=== PATIENT | male | born 1980 | race Caucasian/White ===

== ENCOUNTER → 2021-04-18 10:06 | Outpatient (CLI) | payer OTHER, MEDICAID, SELFPAY ==
[2021-04-18 10:59] LABS: Add Manual Diff / Slide Review NO; Basophils Absolute Auto 0 /uL (0-100); Basophils Percent Auto 0.9 % (0-2); Eosinophils Absolute Auto 100 /uL (0-450); Eosinophils Percent Auto 1.8 % (2-4); Hematocrit 46.8 % (41-53); Hemoglobin 15.8 g/dL (13.5-17.5); Lymphocytes Absolute Auto 1300 /uL (1100-4500); Lymphocytes Percent Auto 39.5 % (25-40); Mean Corpuscular HGB Conc 33.8 % (30-36); Mean Corpuscular Hemoglobin 31.2 PG (26-34); Mean Corpuscular Volume 92.2 fL (80-100); Monocytes Absolute Auto 300 /uL (0-900); Monocytes Percent Auto 8.9 % (3-14); Neutrophils Absolute Auto 1700 /uL (1500-7000); Neutrophils Percent Auto 48.9 % (50-75); Platelet Count 140 X10^3/uL (150-400); Red Blood Cell Count 5.07 X10^6/uL (4.5-5.9); Red Cell Distribution Width 13.1 % (11.6-14.8); White Blood Cell Count 3.4 X10^3/uL (4.5-11.0)
[2021-04-18 11:12] LABS: Alanine Aminotransferase 15 IU/L (<50); Albumin 4.6 g/dL (3.5-5.0); Albumin Globulin Ratio 1.8 (1.0-2.8); Alkaline Phosphatase 43 U/L (38-126); Aspartate Aminotransferase 23 IU/L (17-59); BUN Creatinine Ratio 14.1 (6-22); Bilirubin Total 0.9 mg/dL (0.2-1.3); Blood Urea Nitrogen 14 mg/dL (9-20); Calcium 9.7 mg/dL (8.4-10.2); Carbon Dioxide 31 mmol/L (22-32); Chloride 103 mmol/L (98-107); Cholesterol 153 mg/dL (140-199); Estimated Glomerular Filt Rate > 60.0 mL/min (>60); Globulin 2.6 g/dL (1.7-4.1); Glucose 98 mg/dL (70-100); HDL Cholesterol 48 mg/dL (40-60); HEMOLYSIS < 15 (0-50); LDL Cholesterol Calculated 93 mg/dL (<100); Potassium 4.9 mmol/L (3.4-5.1); Sodium 140 mmol/L (137-145); Total Protein 7.2 g/dL (6.3-8.2); Triglycerides 62 mg/dL (35-150)
== END ==
PROVIDERS: PCP Family Medicine; Referring Provider Family Medicine; Visit Provider Family Medicine
DX: Z00.00 Encounter for general adult medical examination without abnormal findings (principal)
CPT/HCPCS: 36415; 80053; 80061; 85025

== ENCOUNTER → 2021-06-20 13:59 | Outpatient (CLI) | payer OTHER, MEDICAID, SELFPAY ==
--- NOTE | 2021-06-20 14:00 | DI.RAD.S_ITS ---
PROCEDURE: XR FOOT LT 2V INDICATIONS: injury, persistent pain TECHNIQUE: 2 views of the foot were acquired. COMPARISON: None. FINDINGS: Bones: No fractures or dislocations. No suspicious bony lesions. Soft tissues: No tibiotalar joint effusion. Achilles tendon appears normal. IMPRESSION: No acute fracture. No osseous lesion. If symptoms and/or clinical suspicion for pathology persist, further assessment with repeat, or advanced imaging (e.g., CT, MRI, or bone scan) may be helpful for further assessment. Dictated by: Virgen Morales M.D. on 06/20/2021 at 16:25 Approved by: Virgen Morales M.D. on 06/20/2021 at 16:26
== END ==
PROVIDERS: PCP Family Medicine; Referring Provider Family Medicine; Visit Provider Family Medicine
DX: M79.672 Pain in left foot (principal)
CPT/HCPCS: 73620

== ENCOUNTER → 2021-08-16 09:07 | Outpatient (CLI) | payer OTHER, MEDICAID, SELFPAY ==
[2021-08-16 11:33] LABS: COVID19 -Nasal RAPID Negative (Negative)
== END ==
PROVIDERS: PCP Family Medicine; Visit Provider Surgery
DX: Z01.812 Encounter for preprocedural laboratory examination (principal); Z20.822 Contact with and (suspected) exposure to COVID-19
CPT/HCPCS: 87635

== ENCOUNTER → 2021-08-16 09:11 | Outpatient (CLI) | payer OTHER, MEDICAID, SELFPAY ==
[2021-08-16 09:42] LABS: Add Manual Diff / Slide Review NO; Basophils Absolute Auto 0 /uL (0-100); Basophils Percent Auto 0.8 % (0-2); Eosinophils Absolute Auto 100 /uL (0-450); Eosinophils Percent Auto 1.2 % (2-4); Hematocrit 44.6 % (41-53); Hemoglobin 15.4 g/dL (13.5-17.5); Lymphocytes Absolute Auto 1600 /uL (1100-4500); Lymphocytes Percent Auto 34.8 % (25-40); Mean Corpuscular HGB Conc 34.6 % (30-36); Mean Corpuscular Hemoglobin 31.1 PG (26-34); Mean Corpuscular Volume 89.8 fL (80-100); Monocytes Absolute Auto 400 /uL (0-900); Monocytes Percent Auto 8.4 % (3-14); Neutrophils Absolute Auto 2500 /uL (1500-7000); Neutrophils Percent Auto 54.8 % (50-75); Platelet Count 136 X10^3/uL (150-400); Red Blood Cell Count 4.97 X10^6/uL (4.5-5.9); Red Cell Distribution Width 12.8 % (11.6-14.8); White Blood Cell Count 4.6 X10^3/uL (4.5-11.0)
== END ==
PROVIDERS: PCP Family Medicine; Referring Provider Family Medicine; Visit Provider Family Medicine
DX: Z01.812 Encounter for preprocedural laboratory examination (principal); D69.6 Thrombocytopenia, unspecified; D72.819 Decreased white blood cell count, unspecified; Z20.822 Contact with and (suspected) exposure to COVID-19
CPT/HCPCS: 36415; 85025; 87635; C9803

== ENCOUNTER 2021-08-17 12:57 | Day surgery (SDC) | payer OTHER, MEDICAID, SELFPAY ==
[2021-08-17] MEDS: LACTATED RINGERS 1,000 ML 84 ML IV (13:34)
[2021-08-17 13:44] VITALS: BP 128/80; PULSE 62; RESP 18; TEMP 36.6; O2SAT 97; BMI 24.4
--- NOTE | 2021-08-17 14:47 | PM.HP.1 ---
History of Present Illness History of Present Illness Date Patient Seen: 08/17/21 Time Patient Seen: 14:48 Chief complaint: DX COLONOSCOPY Narrative: aHm is a 40-year-old man who is here for colonoscopy due to a family history. His mother was diagnosed with colon cancer in her 50s. He has never had a colonoscopy before. Patient History Medical History (Updated 03/21/21 @ 22:37 by Jennifer Tristan) Clavicle fracture (~2001) Family hx of colon cancer Family & Social History Family History (Updated 03/21/21 @ 22:37 by Jennifer Tristan) Mother Cancer Social History: household members spouse Tobacco & Substance use: Smoking Status Never smoker alcohol intake current alcohol intake frequency a few times a week Substance Use Type does not use Meds Home Medications and Allergies Home Medications Medication Instructions Recorded Confirmed Type No Known Home Medications 08/17/21 08/17/21 History Allergies Allergy/AdvReac Type Severity Reaction Status Date / Time No Known Drug Allergies Allergy Verified 08/17/21 13:31 Exam Vital Signs (past 8 hours): - 08/17/21 13:44 Temperature 97.8 F Pulse Rate 62 Respiratory Rate 18 Blood Pressure 128/80 Pulse Oximetry 97 Oxygen Delivery Method Room Air Const General: healthy appearing Resp Effort & Inspection: normal respiratory effort GI Palpation: soft Assessment & Plan Assessment and plan (1) Family hx of colon cancer: Status: Acute Plan Plan for colonoscopy. Reviewed risks and benefits and he would like to proceed. COVID-19 COVID-19 status: Negative Result date/Date tested (Pos, Neg/Pending): 08/16/21 Time Spent With Patient Critical Care time: I spent a total of [] minutes of critical care time on this patient's care today; this time is exclusive of procedural time.
[2021-08-17] MEDS: MIDAZOLAM 5 MG/5 ML VIAL IV (15:20)
[2021-08-17] MEDS: fentaNYL 250 MCG/5 ML INJ IV (15:20)
--- NOTE | 2021-08-17 15:22 | PM.OP.COLON ---
Operative Date/Time/Diagnoses Date of procedure: 08/17/21 Time of procedure: 15:22 Pre-op diagnosis: Family history of colon cancer Post-op diagnosis: same Procedure & Clinicians Study performed: Colonoscopy Same procedure as scheduled: Yes Surgeon: Gomez Juarez Procedure Notes Procedure in detail: Procedure: The patient was brought to the endoscopy suite, placed in left lateral decubitus position. The patient was connected to monitoring devices. A time-out was performed. Sedation was administered. Once the patient was adequately sedated, a digital rectal exam was performed and was normal. The scope was then inserted and advanced to the cecum where the appendiceal orifice was identified and photographed. The scope was then slowly withdrawn over greater than 6 minutes. Mucosa was thoroughly inspected. No abnormalities were noted. The scope was retroflexed in the rectum. No abnormalities were noted. The scope was straightened and removed. The patient was awakened and brought to recovery. Versed: 8 mg Fentanyl: 250 mcg EBL: 0 Findings: Normal colon Scope withdrawal time: 9 Sedation minutes: 22 Post-procedure Recommendations: Colonoscopy in 5 years Plan for aftercare: Colonoscopy in 5 years due to family history of colon cancer
[2021-08-17 15:25] VITALS: BP 128/81; PULSE 65; RESP 16; TEMP 36.8
[2021-08-17 15:30] VITALS: BP 119/81; PULSE 57; RESP 16; O2SAT 95
[2021-08-17 15:35] VITALS: BP 119/81; PULSE 82; RESP 16; O2SAT 95
[2021-08-17 15:50] VITALS: BP 112/70; PULSE 76; RESP 16; TEMP 36.8; O2SAT 98
[2021-08-17 15:55] VITALS: BP 122/74; PULSE 68; RESP 16; TEMP 36.8; O2SAT 98
== END 2021-08-17 16:15 | disposition home or self-care (01) ==
PROVIDERS: PCP Family Medicine; Referring Provider Surgery; Visit Provider Surgery
PROC: 0DJD8ZZ Inspection of Lower Intestinal Tract, Via Natural or Artificial Opening Endoscopic (ICD-10-PCS; CPT 45378; principal; 2021-08-17 14:30)
DX: Z12.11 Encounter for screening for malignant neoplasm of colon (principal); Z80.0 Family history of malignant neoplasm of digestive organs
CPT/HCPCS: 45378; 99152; J2250; J3010

== ENCOUNTER → 2022-10-06 10:34 | Outpatient (CLI) | payer OTHER, MEDICAID, SELFPAY ==
[2022-10-06 13:21] LABS: Add Manual Diff / Slide Review NO; Basophils Absolute Auto 0 /uL (0-100); Basophils Percent Auto 0.9 % (0-2); Eosinophils Absolute Auto 100 /uL (0-450); Eosinophils Percent Auto 1.6 % (2-4); Hematocrit 45.7 % (41-53); Hemoglobin 15.9 g/dL (13.5-17.5); Lymphocytes Absolute Auto 1600 /uL (1100-4500); Mean Corpuscular HGB Conc 34.8 % (30-36); Mean Corpuscular Hemoglobin 31.4 PG (26-34); Mean Corpuscular Volume 90.2 fL (80-100); Monocytes Absolute Auto 400 /uL (0-900); Monocytes Percent Auto 9.2 % (3-14); Neutrophils Absolute Auto 1800 /uL (1500-7000); Neutrophils Percent Auto 46.3 % (50-75); Platelet Count 149 X10^3/uL (150-400); Red Blood Cell Count 5.06 X10^6/uL (4.5-5.9); Red Cell Distribution Width 12.8 % (11.6-14.8); White Blood Cell Count 3.9 X10^3/uL (4.5-11.0)
[2022-10-06 13:35] LABS: Alanine Aminotransferase 36 IU/L (<50); Albumin 4.6 g/dL (3.5-5.0); Albumin Globulin Ratio 1.7 (1.0-2.8); Alkaline Phosphatase 48 U/L (38-126); Aspartate Aminotransferase 31 IU/L (17-59); BUN Creatinine Ratio 21.1 (6-22); Bilirubin Total 1.3 mg/dL (0.2-1.3); Blood Urea Nitrogen 19 mg/dL (9-20); Calcium 9.1 mg/dL (8.4-10.2); Carbon Dioxide 30 mmol/L (22-32); Chloride 100 mmol/L (98-107); Estimated Glomerular Filt Rate > 60 mL/min (>60); Globulin 2.7 g/dL (1.7-4.1); Glucose 83 mg/dL (70-100); HEMOLYSIS < 15 (0-50); Potassium 4.3 mmol/L (3.4-5.1); Sodium 138 mmol/L (137-145); Total Protein 7.3 g/dL (6.3-8.2)
== END ==
PROVIDERS: PCP Family Medicine; Referring Provider Family Medicine; Visit Provider Family Medicine
DX: Z13.9 Encounter for screening, unspecified (principal); R53.83 Other fatigue
CPT/HCPCS: 36415; 80053; 85025

== ENCOUNTER → 2022-11-07 13:53 | Oncology outpatient (ONC) | payer OTHER, MEDICAID, SELFPAY ==
[2022-11-07 14:25] VITALS: BP 130/78; PULSE 62; RESP 16; TEMP 36.5; O2SAT 98
--- NOTE | 2022-11-07 14:46 | ONC.CONS ---
History of Present Illness - Data of Consult Patient: new to practice Consult date: 11/07/22 Primary Care Provider: Reinier Escobar MD - Consult Narrative Reason for consult: Minimal leukopenia and minimal thrombocytopenia Narrative: Ham Chambers is a 41 year old male He is seen today in initial consultation form minimal CBC abnormalities. His arm lab studies at primary care office based on routine visit of October 06, 2022 had shown minimally reduced white blood cell count of 3.9 with differential showing gain normal absolute neutrophil count of 1800 and overall an minimally increased percentage of lymphocytes with 42% (reference 25-40%) and no abnormal white cells and differential. Hemoglobin perfectly normal with 15.9 Platelets 149 Chemistry with a CMP panel of October 06 showed no abnormality with normal kidney function and LFTs. Bilirubin was on the upper range of normal with 1.3. He denies any night sweats or unintentional weight loss, no change in appetite, no abdominal pain No soft tissue lumps or lymphadenopathy. He is not on any prescription medication. He denies any recent infections. CC: Bandar Og MD Patient reports pain?: No Home Medications and Allergies Home Medications Medication Instructions Recorded Confirmed Type No Known Home Medications 08/17/21 11/07/22 History Allergies Allergy/AdvReac Type Severity Reaction Status Date / Time No Known Drug Allergies Allergy Verified 10/12/22 08:26 Medical History - Medical, Surgical, Family History Medical History: Medical History (Last Updated 10/12/22 @ 08:38 by Reinier Escobar MD) Clavicle fracture Onset Date: ~2001 Family hx of colon cancer Thrombocytopenia Family History: Family History (Last Updated 03/21/21 @ 22:37 by Jennifer Tristan) Mother Cancer - Social History Smoking Status: Never smoker Review of Systems Constitutional: no anorexia, no night sweats, no weight loss Gastrointestinal: no abdominal pain, no nausea Integumentary: no rash Exam Vital signs: Vital Signs Temp Pulse Resp BP Pulse Ox 11/07/22 14:25 97.7 F 62 16 130/78 98 Intake and Output 11/06/22 11/07/22 11/07/22 23:59 07:59 15:59 Other: Weight 86 kg Patient Weight 11/07/22 23:59 Weight 86 kg - Constitutional negative no acute distress - Routine Neck Exam Absent: lymphadenopathy - Routine Chest/Breast/Axilla Exam Axillae: Absent: lymphadenopathy - Routine Cardiovascular Exam Present: RRR - Routine Extremities Exam Absent: edema Assessment and Plan (1) Thrombocytopenia Status: Acute (2) Leukopenia Status: Acute 41-year-old pleasant gentleman who has no significant comorbidities and physically active in sports. He has no known history of viral hepatitis. He is referred for evaluation regarding minimal CBC abnormalities based on routine blood counts at his PCP office from early October,. His white count was minimally below normal with 3.9 and his platelets were minimally below normal with 149. Hemoglobin normal. Differential without any significant abnormality with minimal elevation of lymphocyte component at 42% with reference being less than 40%. He is not on any prescription medication He has no B symptoms or abdominal complaints. No palpable adenopathy. CMP normal I suggested to repeat the CBC with additional lab studies today including B12, folic acid, TSH, serum free light chain screening and serology for hepatitis C. The degree of abnormalities on his CBC are fairly minimal and unlikely to be associated with any significant hematologic disorder. I suggested observation with follow-up in 3 months. If the trend worsens he should have ultrasound of the abdomen to rule out splenomegaly.
--- NOTE | 2023-01-09 15:13 | ONC.SCHED ---
Isaiah: [facility]/Dr. Og Pt was calld about jenelle cancelation in Oct, pt was given the option to have labs drawn and have a nurse follow up with his results. Pt requested to transfer care to [facility] with Dr. Og. Email has been sent to Roxanne Nichols to enter referral, email will be sent to MR once referral in submitted.
--- NOTE | 2023-01-09 15:17 | ONC.SCHED ---
Referral has been entered per Roxanne Younger, email has been sent to MR for processing.
== END ==
PROVIDERS: PCP Family Medicine; Referring Provider Family Medicine; Visit Provider Internal Medicine Hematology & Oncology
DX: D69.6 Thrombocytopenia, unspecified (principal); D72.819 Decreased white blood cell count, unspecified
CPT/HCPCS: 99204; 99214

== ENCOUNTER → 2023-06-20 14:49 | Outpatient (CLI) | payer OTHER, SELFPAY | PROVIDERS: PCP Family Medicine; Visit Provider Family Medicine | DX: J02.9 Acute pharyngitis, unspecified (principal) | CPT/HCPCS: 87070 ==

== ENCOUNTER → 2024-06-24 15:51 | Outpatient (CLI) | payer OTHER, SELFPAY ==
--- NOTE | 2024-06-24 15:53 | DI.RAD.S_ITS ---
PROCEDURE: XR KNEE RT 3V INDICATIONS: Right knee injury; right knee pain TECHNIQUE: 3 views of the knee were acquired. COMPARISON: None. FINDINGS: Bones: Tunnels for ACL repair grafting in the distal femur and proximal tibia demonstrate typical postoperative appearance. Joints: The tibialfemoral and patellofemoral joints show mild degeneration. Small effusion noted. Soft tissues: Normal IMPRESSION: Mild degeneration. No fracture . . Dictated by: Nik Spring M.D. on 06/25/2024 at 12:00 Approved by: Nik Spring M.D. on 06/25/2024 at 12:02
== END ==
PROVIDERS: PCP Family Medicine; Referring Provider Physician Assistant; Visit Provider Physician Assistant
DX: S89.91XA Unspecified injury of right lower leg, initial encounter (principal); M17.11 Unilateral primary osteoarthritis, right knee; M25.561 Pain in right knee; M25.461 Effusion, right knee; X58.XXXA Exposure to other specified factors, initial encounter
CPT/HCPCS: 73562

== ENCOUNTER → 2024-07-15 15:16 | Outpatient (CLI) | payer OTHER, SELFPAY ==
--- NOTE | 2024-07-15 15:19 | DI.MRI.S_ITS ---
PROCEDURE: MR KNEE RT W CON INDICATIONS: INTERNAL DERANGEMENT RT KNEE TECHNIQUE: After the administration of 50 mL of dilute intra-articular Gadolinium contrast, sagittal T1 spin echo with fat saturation and PD fast spin echo with fat saturation, coronal T1 spin echo with and without fat saturation, coronal T2 fast spin echo with fat saturation, axial PD fast spin echo with fat saturation through the knee. COMPARISON: None. FINDINGS: Image quality: Excellent. Moderate popliteal cyst measures up to approximately 5 centimeters cc by 3 centimeters transverse by 2 centimeters AP maximal dimensions. Menisci: Marked diffuse abnormal appearance of the medial meniscus with diffuse degeneration/mid thinning of the anterior horn body and posterior horn with posterior meniscocapsular separation. Lateral meniscus is intact with posterior meniscocapsular separation but the anterior, posterior horns are normal in signal without focal tear. Cruciate ligaments: Patient is status post anterior cruciate ligament repair, using a tendon graft. Graft appears intact, with expected signal changes from ligamentization. No partial or full-thickness graft tears. No posterior bowing of the graft to suggest roof impingement. Femoral and tibial tunnels are in expected positions, without widening or tunnel cysts. The posterior cruciate ligament appears intact. Medial structures: The medial collateral ligament appears intact. The semimembranosus tendon insertions appear intact. Visualized portions of the pes anserinus tendons appear intact. Lateral structures: The lateral collateral ligament, long and short heads of the biceps femoris tendon appear intact. The popliteus tendon appears normal. Iliotibial band appears normal. Anterior structures: The quadriceps and patellar tendons appear intact. Patellar alignment is normal. No femoral trochlear dysplasia or ventral trochlear prominence. No edema in the infrapatellar fat pad. No localized arthrofibrosis (cyclops lesion) in the anterior intercondylar notch. Bones and cartilage: Moderate diffuse cartilaginous thinning and irregularity in the medial compartment predominantly in the medial femoral condyle centrally. No bone marrow contusions or fractures. The cartilage of the lateral femorotibial compartments, as well as the patellofemoral compartment, appears normal in thickness. IMPRESSION: Moderate popliteal cyst. Severe degenerative changes of the medial meniscus and in the medial compartment cartilage. Status post ACL repair. Dictated by: James Morrow M.D. on 07/16/2024 at 11:02 Approved by: James Morrow M.D. on 07/16/2024 at 11:14
--- NOTE | 2024-07-15 15:20 | DI.RAD.S_ITS ---
PROCEDURE: FL ARHTROGRAM KNEE RT INDICATIONS: INTERNAL DERANGEMENT RT KNEE COMPARISON: None. TECHNIQUE: The indications, alternatives, benefits, risks, and complications of the procedure were explained to the patient. Written informed consent was obtained and placed in the chart. The knee was examined fluoroscopically, and a site chosen for knee joint injection. The skin was prepped and draped in a sterile fashion, and 1% Lidocaine infiltrated from the skin down to the articular surface. A hypodermic needle was then introduced into the joint and iodinated contrast media was instilled to confirm the intra-articular needle tip placement. This was followed by approximately 50 mL dilute solution of a gadolinium containing MR contrast agent. The needle was removed and a bandage was applied. An Rhys wrap was then applied around the knee joint to keep the contrast from collecting in the suprapatellar recess. The patient experienced no complications throughout the procedure and left the fluoroscopic suite in no apparent distress. FINDINGS: Single fluoroscopic spot image demonstrates intra-articular location to injected iodinated contrast. IMPRESSION: Successful fluoroscopically guided administration of dilute Gadolinium solution into the knee joint for MR arthrogram. Dictated by: Sina Altamirano M.D. on 07/15/2024 at 16:53 Approved by: Sina Altamirano M.D. on 07/15/2024 at 16:53
== END ==
LOC: RAD 15:17
PROVIDERS: PCP Family Medicine; Referring Provider Orthopaedic Surgery; Visit Provider Orthopaedic Surgery
DX: M23.91 Unspecified internal derangement of right knee (principal); M71.21 Synovial cyst of popliteal space [Baker], right knee; Z96.7 Presence of other bone and tendon implants
CPT/HCPCS: 27369; 73580; 73722; A9579; Q9967

== ENCOUNTER → 2024-09-15 16:17 | Outpatient (CLI) | payer OTHER, SELFPAY ==
--- NOTE | 2024-09-15 16:19 | DI.RAD.S_ITS ---
PROCEDURE: XR CHEST 2V INDICATIONS: cough x 2 mos TECHNIQUE: 2 views of the chest were acquired. COMPARISON: None. FINDINGS: Surgical changes and devices: None. Lungs and pleura: Lungs are clear. No pleural effusions or pneumothorax. Mediastinum: Mediastinal contours are normal. Heart size is normal. Bones and chest wall: No suspicious bony abnormalities. Soft tissues appear unremarkable. IMPRESSION: No acute cardiopulmonary abnormality is seen. Dictated by: Vignesh Joy M.D. on 09/15/2024 at 19:49 Approved by: Vignesh Joy M.D. on 09/15/2024 at 19:50
== END ==
PROVIDERS: PCP Family Medicine; Referring Provider Family Medicine; Visit Provider Physician Assistant
DX: J06.9 Acute upper respiratory infection, unspecified (principal)
CPT/HCPCS: 71046

== ENCOUNTER → 2024-10-03 07:27 | Outpatient (CLI) | payer OTHER, SELFPAY | PROVIDERS: PCP Family Medicine; Visit Provider Nurse Practitioner Family | DX: J02.9 Acute pharyngitis, unspecified (principal) | CPT/HCPCS: 87070 ==